=== PATIENT | female | born 1990 | race Caucasian/White ===

== ENCOUNTER 2017-03-24 01:17 | Outpatient (CLI) | payer OTHER ==
[2017-03-24 02:03] LABS: APPEARANCE,URINE CLEAR; BILIRUBIN,URINE NEGATIVE (NEGATIVE); GLUCOSE, URINE NEGATIVE (NEGATIVE); KETONES,URINE NEGATIVE (NEGATIVE); LEUKOCYTE ESTERASE,URINE NEGATIVE (NEGATIVE); NITRITE,URINE NEGATIVE (NEGATIVE); PROTEIN,URINE NEGATIVE (NEGATIVE); URINE SPECIFIC GRAVITY 1.005; UROBILINOGEN,URINE NEGATIVE mg/dL (<2.0)
[2017-03-24 02:21] LABS: URINE BARBITURATES SCREEN NEGATIVE; URINE METHADONE SCREEN NEGATIVE; URINE OPIATES LOW NEGATIVE; URINE PHENCYCLIDINE SCREEN NEGATIVE
--- NOTE | 2017-03-24 03:10 | Non Stress Test Report ---
Non Stress Test Datetime Report Generated by CPN: 03/24/2017 03:10 DEMOGRAPHIC Test Number: 1 EGA NST: 38.4 INDICATION Indication for Study: Ordered by Provider VITAL SIGNS Temperature - NST: 97.9 MONITORING Monitor Explained: Monitor Explained; Test Explained; Patient Verbalized Understanding Time on Monitor: 03/24/2017 01:37 Time off Monitor: 03/24/2017 02:48 NST Duration: 71 NST INTERVENTIONS NST Interventions: PO Hydration; Reposition Patient Physician Notified NST: Gonzales BABY A: [id number] BABY A Movement : Present Contraction Frequency : 1.5-6 FHR Baseline : 125 Accelerations : 15X15 Decelerations : None Variability : Moderate 6-25bpm NST Review: Meets Criteria for Reactive NST NST Review and Verified By : Dale Pierre RN NST Results: Reactive NST REPORT Report Trigger: Send Report
== END 2017-03-24 03:03 | disposition home or self-care (01) ==
LOC: LC 01:17
PROVIDERS: ATTEND Specialist
DX: O47.1 False labor at or after 37 completed weeks of gestation (principal); Z3A.38 38 weeks gestation of pregnancy
CPT/HCPCS: 59025; 80307; 81005

== ENCOUNTER 2017-03-28 09:13 | Inpatient (IN) | payer MEDICAID, OTHER ==
[2017-03-28] MEDS ORDERED: RINGERS SOLUTION,LACTATED 300 ML IV ONE (09:34)
[2017-03-28] MEDS ORDERED: OXYTOCIN/NORMAL SALINE 1,000 ML IV PRN ×2 (09:34→16:09)
[2017-03-28 09:53] LABS: APPEARANCE,URINE CLEAR; BILIRUBIN,URINE NEGATIVE (NEGATIVE); GLUCOSE, URINE NEGATIVE (NEGATIVE); KETONES,URINE NEGATIVE (NEGATIVE); LEUKOCYTE ESTERASE,URINE TRACE (NEGATIVE); NITRITE,URINE NEGATIVE (NEGATIVE); PROTEIN,URINE NEGATIVE (NEGATIVE); URINE SPECIFIC GRAVITY 1.006; UROBILINOGEN,URINE NEGATIVE mg/dL (<2.0)
[2017-03-28] MEDS ORDERED: CEFAZOLIN 2 GM/D5W RTU 2 GM/50 ML RTUPB IV ONE (09:54)
[2017-03-28] MEDS: RINGERS SOLUTION,LACTATED 1,000 ML IV PRN ×2 (09:58→12:56)
[2017-03-28 10:10] LABS: URINE BARBITURATES SCREEN NEGATIVE; URINE METHADONE SCREEN NEGATIVE; URINE OPIATES LOW NEGATIVE; URINE PHENCYCLIDINE SCREEN NEGATIVE
[2017-03-28 10:25] LABS: ABSOLUTE EOSINOPHILS # (AUTO) 0.1 10^3/uL (0.0-0.6); ABSOLUTE LYMPHOCYTES (AUTO) 2.7 10^3/uL (0.5-4.7); ABSOLUTE MONOCYTES (AUTO) 0.9 10^3/uL (0.1-1.4); ABSOLUTE NEUT (AUTO) 6.1 10^3/uL (1.7-8.2); BASOPHILS % (AUTO) 0.2 % (0-2); EOSINOPHILS % (AUTO) 1.1 % (0-6); HEMATOCRIT 34.5 % (36.0-47.0); HEMOGLOBIN 11.4 g/dL (12.0-15.5); HGB HCT DIFFERENCE -0.3; LYMPHOCYTES % (AUTO) 27.4 % (13-45); MEAN CORPUSCULAR VOLUME 91 fl (80-97); MONOCYTES % (AUTO) 8.9 % (3-13); RED CELL DISTRIBUTION WIDTH 12.7 % (11.5-14.0); SEGMENTED NEUTROPHILS % (AUTO) 62.4 % (42-78); WHITE BLOOD COUNT 9.8 10^3/uL (4.0-10.5)
[2017-03-28] MEDS ORDERED: OXYTOCIN/NORMAL SALINE 0 UNIT/0 ML RTUINJ ONE (10:34)
[2017-03-28] MEDS ORDERED: MISOPROSTOL 0.2 MG TABLET ONE ×2 (10:34)
[2017-03-28] MEDS ORDERED: LIDOCAINE 1% INJ-PF (10 MG/ML) 30 ML SDV ONE (10:34)
[2017-03-28] MEDS ORDERED: FENTANYL/BUPIVACAINE/NS/PF 200 MCG/100 ML RTUINJ EPI ONE (13:05)
[2017-03-28] MEDS ORDERED: EPHEDRINE SULFATE INJ 50 MG/1 ML AMPULE ONE (13:05)
[2017-03-28] MEDS ORDERED: BUPIVACAINE HCL 0.25 % INJ/PF (2.5 MG/1 ML) 30 ML VIAL ONE (13:05)
[2017-03-28] MEDS ORDERED: DIPHENHYDRAMINE HCL 25 MG CAPSULE PO PRN (16:09)
[2017-03-28] MEDS ORDERED: PROMETHAZINE HCL 25 MG TABLET PO PRN (16:09)
[2017-03-28] MEDS ORDERED: NA PHOS,M-B/NA PHOS,DI-BA (ADULT) 133 ML ENEMA PR PRN (16:09)
[2017-03-28] MEDS ORDERED: ZOLPIDEM TARTRATE 5 MG TABLET PO PRN (16:09)
[2017-03-28] MEDS ORDERED: ACETAMINOPHEN 650 MG SUPP.RECT PR PRN (16:09)
[2017-03-28] MEDS ORDERED: MEASLES,MUMPS&RUBELLA VACC/PF 0.5 ML VIAL SUBCUT PRN (16:09)
[2017-03-28] MEDS ORDERED: PSEUDOEPHEDRINE HCL 30 MG TABLET PO PRN (16:09)
[2017-03-28] MEDS ORDERED: DIPH/PERTUSS(ACELL)/TETANUS VAC/PF 0.5 ML SYR (>=10YO) IM PRN (16:09)
[2017-03-28] MEDS ORDERED: MAGNESIUM HYDROXIDE SUSP 30 ML UDCUP PO PRN (16:09)
[2017-03-28] MEDS ORDERED: DIBUCAINE 1% OINTMENT 28 GM TP PRN (16:09)
[2017-03-28] MEDS ORDERED: ACETAMINOPHEN WITH CODEINE #3 TABLET PO PRN (16:09)
[2017-03-28] MEDS ORDERED: PROMETHAZINE HCL INJ 25 MG/1 ML VIAL IV PRN (16:09)
[2017-03-28] MEDS ORDERED: BENZOCAINE/MENTHOL AEROSOL SPRAY 56 ML TOP PRN (16:09)
[2017-03-28] MEDS ORDERED: GLYCERIN/WITCH HAZEL LEAF 1 EACH MED..PAD TP PRN (16:09)
[2017-03-28] MEDS ORDERED: PROMETHAZINE HCL 25 MG SUPP.RECT PR PRN (16:09)
--- NOTE | 2017-03-28 18:10 | Admission Physical ---
Datetime Report Generated by CPN: 03/28/2017 18:09 CURRENT ADMISSION Chief Complaint: Suspected Ruptured Membranes Admit Impression- Other: Prolonged SROM->48hrs. SROM am of 03/26/17 Admit Plan: Admit to Unit; Initiate Labor Augmentation Protocol ALLERGIES Medication Allergies: No Medication Allergies: No Known Allergies (03/24/2017) Medication Allergies: No Known Allergies (07/10/2012) Latex: No Latex Allergies Environmental Allergies: Pollen OBSTETRICAL HISTORY EDC: 04/03/2017 00:00 : 3 Para: 0 Term: 0 : 0 SAB: 0 IAB: 0 Ectopic: 0 Livin Cesareans: 0 VBACs: 0 Multiple Births: 0 Gestational Diabetes: No Rh Sensitization: No Incompetent Cervix: No STEPH: No Infertility: No ART Treatment: No Uterine Anomaly: No IUGR: No Hx Previous C/S: No Macrosomia: No Hx Loss/Stillborn: No PIH: No Hx : No Placenta Previa/Abruption: No Depression/PP Depression: No PTL/PROM: No Post Hemorrhage: No Current Procedures: Ultrasound; NST Obstetrical History Comments: G1 G2 G3 current SEE RECORDS Alcohol: No Marijuana : No Cocaine: No Other Illicit Drugs: No Cigarettes: Never Smoker. [id number] MEDICAL HISTORY Diabetes: No Blood Transfusion: No Pulmonary Disease (Asthma, TB): No Breast Disease: No Hypertension: No Extrusion Former Surgery: No Heart Disease: No Hosp/Surgery: No Autoimmune Disorder: No Anesthetic Complications: No Kidney Disease: No Abnormal Pap Smear: No Neuro/Epilepsy: No Psychiatric Disorders: No Other Medical Diseases: No Hepatitis/Liver Disease: No Significant Family History: No Varicosities/Phlebitis: No Trauma/Violence : No Thyroid Dysfunction: No INFECTIOUS HISTORY Gonorrhea: No Genital Herpes: No Chlamydia: No Tuberculosis: No Syphilis: No Hepatitis: No HIV/AIDS Exposure: No Rash or Viral Illness: No HPV: No PHYSICAL EXAM General: Normal HEENT: Normal Neurologic: Normal Thyroid: Deferred Heart: Normal Lungs: Normal Breast: Normal Back: Normal Abdomen: Normal Genitourinary Exam: Deferred Extremities: Normal DTRs: Normal Pelvic Type: Not Done Physical Exam Comments: Gravid uterus Vital Signs: Reviewed; Within Normal Limits VAGINAL EXAM Dilatation: 3 Effacement: 90 Station: -1 MEMBRANES Pooling: Positive [place] Results: Positive Membranes: Ruptured Amniotic Fluid Color: Clear FETUS A EGA: 39.1 Monitoring: External US FHR- Baseline: 135 Variability: Moderate 6-25bpm Accelerations: 15X15 Decelerations: None FHR Category: Category I Presentation: Vertex Admit Comment: Prolonged SROM---> 48hrs-clear. Checked at [facility] this am ASCUS w + HPV-colpo done in records available Plan admit to L_D-begin augmentation as having irregular, mild contractions. PLANS FOR LABOR AND DELIVERY Labor and Delivery: None Feeding Preference: Both Benefit of Breast Feed Discussed: Yes Circumcision: N/A INFORMED CONSENT Assignment: Cheryle Vance MD Signature: with User ID: Carlotta : with User ID: [email or web address] : I personally evaluated and examined the patient in conjunction with the MLP and agree with the assessment, treatment plan and disposition. : I personally evaluated and examined the patient in conjunction with the MLP and agree with the assessment, treatment plan and disposition.
[2017-03-28] MEDS: DOCUSATE SODIUM 100 MG CAPSULE PO SCH (19:16)
[2017-03-28] MEDS: FERROUS SULFATE 325 MG TABLET PO SCH (19:16)
[2017-03-28] MEDS: IBUPROFEN 800 MG TABLET PO SCH (21:59)
[2017-03-28] MEDS: FAMOTIDINE 20 MG TABLET PO SCH (21:59)
[2017-03-29] MEDS: ACETAMINOPHEN WITH CODEINE #3 TABLET PO PRN ×2 (03:59→21:13)
[2017-03-29] MEDS: IBUPROFEN 800 MG TABLET PO SCH ×3 (05:47→15:16)
[2017-03-29 07:30] LABS: HEMATOCRIT 33.5 % (36.0-47.0); HEMOGLOBIN 11.1 g/dL (12.0-15.5); HGB HCT DIFFERENCE -0.2; MEAN CORPUSCULAR HEMOGLOBIN 30.3 pg (27.0-33.4); MEAN CORPUSCULAR HGB CONC 33.1 g/dL (32.0-36.0); MEAN CORPUSCULAR VOLUME 92 fl (80-97); RED BLOOD COUNT 3.66 10^6/uL (3.72-5.28); RED CELL DISTRIBUTION WIDTH 12.7 % (11.5-14.0); WHITE BLOOD COUNT 13.2 10^3/uL (4.0-10.5)
--- NOTE | 2017-03-29 09:25 | PDOC PROGRESS REPORT ---
Subjective-OB Subjective: Post Delivery Day: 1 26 year old. Denies any needs at this time, states lochia is stable, pain well controlled, voiding without difficulty, bonding with baby well. Physical Exam (OB) Vital Signs: Temp Pulse Resp BP Pulse Ox 97.4 F 68 18 117/46 L 99 03/29/17 07:18 03/29/17 07:18 03/29/17 07:18 03/29/17 07:18 03/29/17 07:18 Intake & Output 03/28/17 03/29/17 03/30/17 06:59 06:59 06:59 Weight 79.75 kg - PIH/Pre-Eclampsia DTR's: 2 + Clonus: Negative Headache: Absent Epigastric Pain: No Visual Changes: No - Lochia Lochia Amount: Scant < 10 ml Lochia Color: Serosa/Brown - Abdomen Description: Tender, Soft Hernia Present: No Fundal Description: Firm, Midline Fundal Height: u/u - u/2 Objective-Diagnostic Laboratory: 03/29/17 06:55 03/28/17 03/28/17 03/28/17 09:24 10:00 10:00 WBC 9.8 RBC 3.80 Hgb 11.4 L Hct 34.5 L MCV 91 MCH 30.0 MCHC 33.0 RDW 12.7 Plt Count 229 Seg Neutrophils % 62.4 Lymphocytes % 27.4 Monocytes % 8.9 Eosinophils % 1.1 Basophils % 0.2 Absolute Neutrophils 6.1 Absolute Lymphocytes 2.7 Absolute Monocytes 0.9 Absolute Eosinophils 0.1 Absolute Basophils 0.0 Urine Color YELLOW Urine Appearance CLEAR Urine pH 7.0 Ur Specific [place] 1.006 Urine Protein NEGATIVE Urine Glucose (UA) NEGATIVE Urine Ketones NEGATIVE Urine Blood LARGE H Urine Nitrite NEGATIVE Ur Leukocyte Esterase TRACE H Blood Type O POSITIVE Antibody Screen NEGATIVE 03/29/17 06:55 WBC 13.2 H RBC 3.66 L Hgb 11.1 L Hct 33.5 L MCV 92 MCH 30.3 MCHC 33.1 RDW 12.7 Plt Count 216 Seg Neutrophils % Lymphocytes % Monocytes % Eosinophils % Basophils % Absolute Neutrophils Absolute Lymphocytes Absolute Monocytes Absolute Eosinophils Absolute Basophils Urine Color Urine Appearance Urine pH Ur Specific [place] Urine Protein Urine Glucose (UA) Urine Ketones Urine Blood Urine Nitrite Ur Leukocyte Esterase Blood Type Antibody Screen Assessment and Plan(PN) - Assessment and Plan (1) Vaginal delivery Is this a current diagnosis for this admission?: YesPlan: routine pp care cbc - Time Spent with Patient Time with patient: Less than 15 minutes Critical Time spent with patient: Less than 15 minutes Medications reviewed and adjusted accordingly: Yes - Disposition Anticipated Discharge: Home Within: within 24 hours
[2017-03-29] MEDS: PRENATAL VITAMIN W-O CA NO5/FE FUMARATE/FA CAPSULE PO SCH (10:04)
[2017-03-29] MEDS: FERROUS SULFATE 325 MG TABLET PO SCH ×2 (10:04→18:07)
[2017-03-29] MEDS: SENNOSIDES/DOCUSATE 8.6-50 MG 1 EACH TABLET PO SCH (10:04)
[2017-03-29] MEDS: FAMOTIDINE 20 MG TABLET PO SCH ×2 (10:04→21:12)
[2017-03-29] MEDS: DOCUSATE SODIUM 100 MG CAPSULE PO SCH ×2 (10:04→18:07)
[2017-03-30] MEDS: IBUPROFEN 800 MG TABLET PO SCH ×2 (04:59→13:15)
--- NOTE | 2017-03-30 08:56 | PDOC DISCHARGE SUMMARY ---
Final Diagnosis Discharge Date: 03/30/17 - Final Diagnosis (1) Vaginal delivery Is this a current diagnosis for this admission?: Yes Discharge Data - Discharge Medication Home Medications: Vit/Iron Fumarate/FA [ Tablet] 1 each PO DAILY 03/24/17 Docusate Sodium [Colace 100 mg Capsule] 100 mg PO BID #60 capsule 03/30/17 Ibuprofen [Motrin 800 mg Tablet] 800 mg PO Q8 #60 tablet 03/30/17 Gestational Age: 39.1 Reason(s) for Admission: PROM Procedures: NST Intrapartum Procedure(s): Spontaneous Vaginal Delivery Complication(s): Laceration-Labial Laceration-Degree: 2nd - [place] Data Baby 1 Female Weight: 3.912 kg Home with Mother: Yes Complications: Yes - prolonged rupture of membranes - Diagnosis Test Laboratory: Temp Pulse Resp BP Pulse Ox 98.5 F 65 16 108/66 96 03/29/17 20:15 03/29/17 20:15 03/29/17 20:15 03/29/17 20:15 03/29/17 20:15 03/28/17 03/28/17 03/29/17 09:24 10:00 06:55 RBC 3.80 3.66 L Hgb 11.4 L 11.1 L Hct 34.5 L 33.5 L Urine Opiates Screen NEGATIVE - Discharge information/Instructions Discharge Activity: Activity As Tolerated, Pelvic Rest, No tub bath Discharge Diet: Regular Disposition: HOME, SELF-CARE Follow up with: [facility] in: 4, Weeks
--- NOTE | 2017-03-30 09:35 | Delivery Summary ---
Del Sum A-C Datetime Report Generated by N: 03/30/2017 09:35 DELIVERY PERSONNEL DELIVERY PERSONNEL: [phone] DELIVERY PERSONNEL: [phone] Delivery Doctor:: Lilia Montague CNM Labor and Delivery Nurse:: Marjorie Gutierrez RN Nursery Nurse:: Bonita Moss RN (Annotations: Data stored by Reginaldo on behalf of user) Customs Compliance Analyst/REVENUE RESEARCH ANALYST: Manuel Mckeon, SCREW MACHINE REPAIRER MATERNAL INFORMATION Delivery Anesthesia: Epidural Medications After Delivery: Pitocin Drip 20 Units/1000ml NSS Estimated Blood Loss (ml): 275 Maternal Complications: Premature Rupture of Membranes Provider Comments: viable female in vertex OA to SANAZ at 1528 under epidural anesthesia. Spontaneous respirations and cry. 3-vessel cord. Apgars 9-10. Cord clamped x 2, after 2 min delay, then cut by FOB. Placenta, membranes, and cord expelled at 1533, Becker presentation. Appears intact. Right labial tear extending into 2nd degree perineal tear repaired as noted above. Hemostasis achieved. Patient tolerated procedure well. LABOR SUMMARY EDC: 04/03/2017 00:00 No. Babies in Womb: 1 Attempted: No LABOR INFORMATION Reason for Induction: Premature Rupture of Membranes Reason for Induction- Other: Prolonged rupture of membranes-->48 hrs Oxytocin: Augmentation Group B Beta Strep: Negative Steroids Given: None Reason Steroids Not Administered: Not Applicable MEMBRANES Membranes Rupture Method: Spontaneous Rupture of Membranes: 03/26/2017 09:00 Length of Rupture (hr): 54.47 STAGES OF LABOR Stage 3 hr: 0 Stage 3 min: 5 VAGINAL DELIVERY Episiotomy: None Laceration Extension: Second Degree Laceration Type: Perineal Other Laceration: Right labial Laceration Repair: Yes Laceration Repair Note: 2nd perineal tear and right labial tear repaired with interrupted stitches using 2-0 and 3-0 Chromic Sponge Count Correct: N/A Sharps Count Correct: Yes CSECTION DELIVERY Primary Indication: N/A BABY A INFORMATION Delivery Date/Time: 03/28/2017 15:28 Method of Delivery: Vaginal Born in Route : No : N/A Forceps: N/A Vacuum Extraction: N/A Shoulder Dystocia : No PRESENTATION/POSITION BABY A Presentation: Cephalic Presentation: Cephalic Presentation: Cephalic Presentation: Cephalic Cephalic Presentation: Vertex Vertex Position: Right Occipital Anterior Breech Presentation: N/A PLACENTA INFORMATION BABY A Placenta Delivery Time : 03/28/2017 15:33 Placenta Method of Delivery: Spontaneous Placenta Status: Delivered SCORES BABY A Heart Rate 1 min: >100 bpm Resp Effort 1 min: Good Cry Reflex Irritability 1 min: Cough or Sneeze or Pulls Away Muscle Tone 1 min: Active Motion Color 1 min: Body [place], Extremities Blue Resuscitation Effort 1 min: N/A SCORE 1 MIN: 9 Heart Rate 5 min: >100 bpm Resp Effort 5 min: Good Cry Reflex Irritability 5 min: Cough or Sneeze or Pulls Away Muscle Tone 5 min: Active Motion Color 5 min: Completely [place] Resuscitation Effort 5 min: N/A SCORE 5 MIN: 10 INFANT INFORMATION BABY A Gestational Age at Delivery: 39.1 Gestational Status: Full Term- 39- 40.6 Weeks Outcome : Liveborn Condition : Stable Infant Sex: Female IDENTIFICATION BABY A Verification Date/Time: 03/28/2017 16:13 ID Band Number: [id number] Mother's Name Verified: Yes Infant RN Verifying : K Prasanna RNC Additional Verifying Personnel: C [place] RN WEIGHT/LENGTH BABY A Birthweight (gm): 3865 Infant Weight (lb): 8 Infant Weight (oz): 8 Infant Length (in): 20.00 Infant Length (cm): 50.80 CORD INFORMATION BABY A No. Cord Vessels: 3 Nuchal Cord : N/A Cord Blood Taken: Yes-For Storage (Mom's Blood type +) Suction: None ASSESSMENT BABY A Infant Complications: None Physical Findings at Delivery: Within Normal Limits Infant Respirations: Appears Normal Skin to Skin: Yes Skin to Skin: Yes Skin to Skin: Yes Skin to Skin Time (min): 30 Adjunct Psychology Faculty Member/ALS Called : No Care By: Lexii Farooq RN SIGNATURES Assignment: Cheryle Vance MD Signature: with User ID: Carlotta : with User ID: Carlotta : I personally evaluated and examined the patient in conjunction with the MLP and agree with the assessment, treatment plan and disposition. : I personally evaluated and examined the patient in conjunction with the MLP and agree with the assessment, treatment plan and disposition.
[2017-03-30] MEDS: SENNOSIDES/DOCUSATE 8.6-50 MG 1 EACH TABLET PO SCH (09:51)
[2017-03-30] MEDS: DOCUSATE SODIUM 100 MG CAPSULE PO SCH ×2 (09:51→17:50)
[2017-03-30] MEDS: PRENATAL VITAMIN W-O CA NO5/FE FUMARATE/FA CAPSULE PO SCH (09:51)
[2017-03-30] MEDS: FERROUS SULFATE 325 MG TABLET PO SCH ×2 (09:51→17:50)
[2017-03-30] MEDS: FAMOTIDINE 20 MG TABLET PO SCH (09:52)
[2017-03-30 11:23] VITALS: BP 131/64
== END 2017-03-30 18:32 | disposition home or self-care (01) | DRG 774 ==
LOC: LC 09:13 → LR 09:32 → 2S 17:55
PROVIDERS: ADMIT Obstetrics & Gynecology; ATTEND Obstetrics & Gynecology
PROC: 10E0XZZ Delivery of Products of Conception, External Approach (ICD-10-PCS; principal; 2017-03-28)
PROC: 0KQM0ZZ Repair Perineum Muscle, Open Approach (ICD-10-PCS; 2017-03-28)
PROC: 4A1HXCZ Monitoring of Products of Conception, Cardiac Rate, External Approach (ICD-10-PCS; 2017-03-28)
PROC: 3E0234Z Introduction of Serum, Toxoid and Vaccine into Muscle, Percutaneous Approach (ICD-10-PCS; 2017-03-30)
DX: O42.12 Full-term premature rupture of membranes, onset of labor more than 24 hours following rupture (principal); O98.32 Other infections with a predominantly sexual mode of transmission complicating childbirth; O70.1 Second degree perineal laceration during delivery; A63.0 Anogenital (venereal) warts; Z37.0 Single live birth; Z3A.39 39 weeks gestation of pregnancy; Z23 Encounter for immunization
CPT/HCPCS: 36415; 80307; 81005; 85025; 85027; 86592; 86850; 86900; 86901; 88307; 90715; J0690; J2590; J3490